=== PATIENT | female | born 1995 | race Caucasian/White ===

== ENCOUNTER 2017-06-28 17:19 | Emergency (ER) | payer MEDICAID ==
[~2017-06-28] VITALS: Ht 152.4 cm; Wt 49.0 kg
[2017-06-28 17:22] VITALS: Ht 152.4 cm; Wt 49.0 kg
[2017-06-28 18:40] LABS: WHITE BLOOD COUNT 6.9 10^3/ul (4.8-10.8)
[2017-06-28 18:41] LABS: BASOPHILS % 0.4 % (0.0-2.0); EOSINOPHILS # 0.1 10^3/ul (0.0-0.5); EOSINOPHILS % 1.3 % (0.0-7.0); HEMATOCRIT 36.1 % (37.0-47.0); HEMOGLOBIN 11.5 g/dl (12.0-16.0); LYMPHOCYTES # 2.6 10^3/ul (0.8-2.9); MEAN CORPUSCULAR HEMOGLOBIN 28.8 pg (29.0-33.0); MEAN CORPUSCULAR HGB CONC 31.9 g/dl (32.0-37.0); MEAN CORPUSCULAR VOLUME 90.3 fl (82.0-101.0); MEAN PLATELET VOLUME 10.1 fl (7.4-10.4); MONOCYTE # 0.4 10^3/ul (0.3-0.9); NEUTROPHIL # 3.8 10^3/ul (1.6-7.5); NEUTROPHILS % 55.2 % (39.0-77.0); PLATELET COUNT 275 10^3/UL (140-415); RED CELL DISTRIBUTION WIDTH 12.1 % (11.5-14.5)
--- NOTE | 2017-06-28 19:00 | ERD ---
ER Documentation Chief Complaint Date/Time DATE: 06/28/17 TIME: 18:58 Chief Complaint VAG BLEED X 4 DAYS , 12 WEEKS PREG HPI This is a 22-year-old female who presents the emergency department today planing of vaginal bleeding past 4 days. States she is 3 months . States she has passed some clots. States she does have some lower pelvic cramping and back pain. She has not taken a medication for the pain. Denies any nausea vomiting, fevers or chills. ROS All systems reviewed and are negative except as per history of present illness. Medications Home Meds Active Scripts Acetaminophen* (Tylophen*) 500 Mg Capsule, 1 CAP PO Q6H Y for PAIN AND OR ELEVATED TEMP, #30 CAP Prov:VICENTA BROWN PA-C 06/28/17 PMhx/Soc Medical and Surgical Hx: pt denies Medical Hx, pt denies Surgical Hx Hx Alcohol Use: No Hx Substance Use: No Hx Tobacco Use: No Smoking Status: Never smoker Physical Exam Vitals Vital Signs Date Time Temp Pulse Resp B/P Pulse Ox O2 Delivery O2 Flow Rate FiO2 06/28/17 21:36 98.1 76 16 105/68 99 Room Air 06/28/17 17:22 98.2 82 18 107/67 99 Physical Exam Const: NAD Head: Atraumatic Eyes: Normal Conjunctiva ENT: Normal External Ears, Nose and Mouth. Neck: Full range of motion..~ No meningismus. Resp: Clear to auscultation bilaterally Cardio: Regular rate and rhythm, no murmurs Abd: Soft,mild pelvic tendernessnon distended. Normal bowel sounds : Pelvic exam with vaginal bleeding and clots. Cervix slightly open. No evidence of discharge. Skin: No petechiae or rashes Back: No midline or flank tenderness Ext: No cyanosis, or edema Neur: Awake and alert Psych: Normal Mood and Affect Result Diagram: 06/28/17 1820 Results 24 hrs Laboratory Tests Test 06/28/17 18:20 White Blood Count 6.910^3/ul Red Blood Count 4.0010^6/ul Hemoglobin 11.5g/dl Hematocrit 36.1% Mean Corpuscular Volume 90.3fl Mean Corpuscular Hemoglobin 28.8pg Mean Corpuscular Hemoglobin Concent 31.9g/dl Red Cell Distribution Width 12.1% Platelet Count 35810^3/UL Mean Platelet Volume 10.1fl Neutrophils % 55.2% Lymphocytes % 38.0% Monocytes % 5.0% Eosinophils % 1.3% Basophils % 0.4% Nucleated Red Blood Cells % 0.0/100WBC Neutrophils # 3.810^3/ul Lymphocytes # 2.610^3/ul Monocytes # 0.410^3/ul Eosinophils # 0.110^3/ul Basophils # 0.010^3/ul Nucleated Red Blood Cells # 0.010^3/ul Urine Color YELLOW Urine Clarity SLIGHTLY CLOUDY Urine pH 5.0 Urine Specific Allison 1.026 Urine Ketones TRACEmg/dL Urine Nitrite NEGATIVEmg/dL Urine Bilirubin NEGATIVEmg/dL Urine Urobilinogen 1+mg/dL Urine Leukocyte Esterase NEGATIVELeu/ul Urine Microscopic RBC 1/HPF Urine Microscopic WBC 2/HPF Urine Squamous Epithelial Cells FEW/HPF Urine Bacteria FEW/HPF Urine Mucus MANY/HPF Urine Hemoglobin 3+mg/dL Urine Glucose NEGATIVEmg/dL Urine Total Protein NEGATIVEmg/dl Beta HCG, Quantitative 2235.8mIU/ml DIAGNOSTIC IMAGING REPORT Patient: JAKY MANCILLA : 1995 Age: 22 Sex: F MR #: [id number] DOS: 06/28/17 0000 Ordering MD: VICENTA BROWN PA-C Location: [facility] Room/Bed: PROCEDURE: Pelvic ultrasound. CLINICAL INDICATION: Pelvic pain TECHNIQUE: Jose scale, color doppler, spectral doppler ultrasound of the pelvis was performed with transabdominal and transvaginal transducers. COMPARISON: No prior studies are available for comparison. FINDINGS: Uterus: Position: Anteverted. Normal myometrial echogenicity. Normal appearance of the endometrium. Ovaries: Normal appearing right ovary. Normal appearing left ovary. No adnexal masses. Free fluid: None. Measurements: Endometrium (cm): 0.7 Uterus (cm): 7.0 x 4.5 x 5.3 Right ovary (cm): 3.2 x 2.0 x 2.6 Left ovary (cm): 2.4 x 1.1 x 2.0 IMPRESSION: Normal appearance of the endometrium, uterus, both ovaries. No evidence of intrauterine or extrauterine gestation. Unless clinically contraindicated recommend correlation with quantitative beta HCG trend and repeated pelvic ultrasound. RPTAT: AADD .Lan Pardo MD, Date Time Electronically viewed and signed by .Lan Pardo MD, on 06/28/2017 19:31 .B/ CC: VICENTA BROWN PA-C Procedures/MDM This is a 22-year-old female who presents to the emergency department today complaining of vaginal bleeding for the past 4 days. Patient states she is approximately 3 months . Given this I did obtain a complete OB workup. Laboratory work no elevated white blood cell count. Her hemoglobin is very mildly decreased. Platelets are within normal limits. UA is negative for infection. Beta quant hCG 2235.8 Rh status O+ Ultrasound shows a normal appearance of the endometrium, uterus and both ovaries. There is no evidence of intrauterine or extrauterine gestation. There are no adnexal masses. There is a normal-appearing right and left ovary. There is no free fluid. Patient symptoms at this time is consistent with vaginal bleeding in early and likely failed given no IUP as patient indicated she had been 12 weeks . Patient had indicated that she had gone to a clinic in [place] but did not know the name of her clinic or who her doctor was and they had told her that she was 9 weeks when she last went to the clinic. Patient stated that she had an ultrasound upon her initial HPI. Upon further questioning patient indicated that she never had an ultrasound her clinic but had one last night at an outside hospital. This was not mentioned at the initial HPI. I asked patient which hospital she went to and she could not tell me the name or where it was located other than it was "in [place]" . She indicated that her friend took her there. States that she came to our hospital today because she had continued bleeding. States that she did not bring her paperwork with her and that it was at her house and that no one was at her house to bring it to her. But that she was told that " there was no baby ". Patient is a poor historian however she is a afebrile and otherwise well- appearing. I have low suspicion for ectopic , tubo ovarian abscess, ovarian torsion. However given patient's quant and evidence of no IUP I did place a call to the laborist professional benefits sales consultant, Dr. Lindsey felt that the patient is stable for discharge and outpatient management with follow-up for repeat beta quant in 48 hours.Patient hemodynamically stable and there is no indication for transfusion at this time. I explained to the patient that she is probably going to continue to have some vaginal bleeding. Patient understood. I have explained the results to the patient. I have explained to the patient that they need to follow-up in 48 hours for a repeat beta quant. At this time the patient is stable for discharge and outpatient management. Patient should follow up with their PCP in the next 1-2 days. They may return to the emergency department sooner for any persistent or worsening of symptoms. Patient understood and agreed with the plan. Departure Diagnosis: Primary Impression: Vaginal bleeding in patient at less than 20 weeks gestation Condition: VICENTA Rose PA-C Jun 28, 2017 19:00
--- NOTE | 2017-06-28 19:32 | RADRPT ---
PROCEDURE: Pelvic ultrasound. CLINICAL INDICATION: Pelvic pain TECHNIQUE: Jose scale, color doppler, spectral doppler ultrasound of the pelvis was performed with transabdominal and transvaginal transducers. COMPARISON: No prior studies are available for comparison. FINDINGS: Uterus: Position: Anteverted. Normal myometrial echogenicity. Normal appearance of the endometrium. Ovaries: Normal appearing right ovary. Normal appearing left ovary. No adnexal masses. Free fluid: None. Measurements: Endometrium (cm): 0.7 Uterus (cm): 7.0 x 4.5 x 5.3 Right ovary (cm): 3.2 x 2.0 x 2.6 Left ovary (cm): 2.4 x 1.1 x 2.0 IMPRESSION: Normal appearance of the endometrium, uterus, both ovaries. No evidence of intrauterine or extrauterine gestation. Unless clinically contraindicated recommend correlation with quantitative beta HCG trend and repeate d pelvic ultrasound. RPTAT: AADD .Lan Pardo MD, MD Date Time Electronically viewed and signed by .Lan Pardo MD, on 06/28/2017 19:31 .B/
[2017-06-28 19:52] LABS: ADD UMIC YES; UR ASCORBIC ACID NEGATIVE (NEGATIVE); UR BACTERIA FEW /HPF (NONE SEEN); UR BILIRUBIN (Dip) NEGATIVE (NEGATIVE); UR BLOOD (Dip) 3+ mg/dL (NEGATIVE); UR CLARITY SLIGHTLY CLOUDY (CLEAR); UR COLOR YELLOW (YELLOW); UR GLUCOSE (Dip) NEGATIVE (NEGATIVE); UR KETONES (Dip) TRACE mg/dL (NEGATIVE); UR LEUKOCYTE ESTERASE (Dip) NEGATIVE Leu/ul (NEGATIVE); UR MUCUS MANY /HPF (NONE SEEN); UR NITRITE (Dip) NEGATIVE (NEGATIVE); UR RBC 1 /HPF (0-5); UR SPECIFIC GRAVITY (Dip) 1.026 (1.003-1.030); UR SQUAMOUS EPITHELIAL CELL FEW /HPF (FEW); UR TOTAL PROTEIN (Dip) NEGATIVE (NEGATIVE); UR UROBILINOGEN (Dip) 1+ mg/dL (NEGATIVE)
[2017-06-28] MEDS ORDERED: ACET500C5 PO (21:18)
[2017-06-28 21:36] VITALS: BP 105/68; PULSE 76; RESP 16; TEMP 98.1
== END 2017-06-28 21:37 | disposition home or self-care (01) ==
LOC: FTE 17:19
DX: O20.9 Hemorrhage in early pregnancy, unspecified (principal); R10.2 Pelvic and perineal pain; Z3A.12 12 weeks gestation of pregnancy
CPT/HCPCS: 36415; 76805; 81001; 84702; 85025; 86900; 86901; Z7502